=== PATIENT | female | born 1975 | race Caucasian/White ===

== ENCOUNTER → 2017-03-18 | Emergency (ER) | payer OTHER ==
[~2017-03-18] VITALS: Ht 165.1 cm; Wt 104.3 kg
[~2017-03-18] MED LIST: AVAPRO150 MG; CALCITRIOL0.25 MCG; COUMADIN5 MG; INDOMETHACIN50 MG
== END | disposition home or self-care (01) ==
LOC: ER 16:17
DX: L03.116 Cellulitis of left lower limb (principal); L02.416 Cutaneous abscess of left lower limb